=== PATIENT | female | born 1985 | race African-American/Black ===

== ENCOUNTER → 2016-06-19 | Outpatient (CLI) | payer OTHER ==
[2016-05-26 18:18] VITALS: BP 108/70
[~2016-06-19] MED LIST: CYCL10TA2 PO; HYDR-971 PO; METH4TAB2 PO
--- NOTE | 2016-06-19 14:56 | CARD ---
APPROVED REPORT EXAM: Two-dimensional and M-mode echocardiogram with Doppler and color Doppler. Other Information Quality : Average Rhythm : NSR INDICATION Cardiomegaly 2D DIMENSIONS RVDd3.5 (2.9-3.5cm)Left Atrium(2D)3.1 (1.6-4.0cm) IVSd0.9 (0.7-1.1cm)Aortic Root(2D)2.7 (2.0-3.7cm) LVDd4.8 (3.9-5.9cm)LVOT Diameter2.0 (1.8-2.4cm) PWd0.9 (0.7-1.1cm)LVDs2.8 (2.5-4.0cm) FS (%) 31.5 %SV78.9 ml LVEF(%)62.3 (>50%) Aortic Valve AoV Peak Lan.117.9cm/sAoV VTI23.2cm AO Peak GR.5.6mmHgLVOT Peak Lan.104.5cm/s LVOT VTI 20.47cmAO Mean GR.3mmHg FLORINA (VMAX)2.99qp9WTS (VTI)2.79cm2 Mitral Valve MV E Guuladud42.3cm/sMV DECEL FLVX717xo MV A Gczusjtc43.8cm/sMV E Mean Gr.1mmHg MV TWE27emV/A Ratio1.6 MV A Mhiowhli003vrRIX (PHT)3.94cm2 TDI E/Lateral E'6.3E/Medial E'6.9 Pulmonary Valve PV Peak Laroqesb11.1cm/sPV Peak Grad.3mmHg RVOT VTI16.8cm Tricuspid Valve TR P. Xrbawfgo881mw/sRAP LULXVEHI1auKp TR Peak Gr.82ggOuQJJC70bmEm Pulmonary Vein S1 Pnlqhbmb09.0cm/sD2 Dwkanxlq87.8cm/s LEFT VENTRICLE The left ventricle is normal size. There is normal left ventricular wall thickness. Left ventricle sy stolic function is normal. The Ejection Fraction is 60-65%. There is normal LV segmental wall motion. The left ventricular diastolic function and filling is normal for age. RIGHT VENTRICLE The right ventricle is normal size. There is normal right ventricular wall thickness. The right ventr icular systolic function is normal. ATRIA The left atrium size is normal. The right atrium size is normal. The interatrial septum is intact wit h no evidence for an atrial septal defect or patent foramen ovale as noted on 2-D or Doppler imaging. AORTIC VALVE The aortic valve is normal in structure and function. The aortic valve is trileaflet. Doppler and Col or Flow revealed no significant aortic regurgitation. There is no significant aortic valvular stenosi s. MITRAL VALVE The mitral valve leaflets are thickened. There is no mitral valve stenosis. Doppler and Color Flow re vealed trace mitral regurgitation. TRICUSPID VALVE The tricuspid valve is normal in structure and function. Doppler and Color Flow revealed trace to mil d tricuspid regurgitation. The PA pressure was estimated at 31 mmHg. There is no tricuspid valve sten osis. PULMONIC VALVE The pulmonary valve is normal in structure and function. Doppler and Color Flow revealed trace pulmon ic valvular regurgitation. There is no pulmonic valvular stenosis. GREAT VESSELS The aortic root is normal in size. Normal pulmonary venous flow (Doppler). The IVC is normal in size and collapses >50% with inspiration. PERICARDIAL EFFUSION There is no evidence of significant pericardial effusion. Critical Notification Critical Value: No <Conclusion> The left ventricle is normal size. Left ventricle systolic function is normal. The Ejection Fraction is 60-65%. There is normal LV segmental wall motion. No pulmonary HTN or significant valvular disease.
== END | disposition home or self-care (01) ==
LOC: ECHO 12:59
PROVIDERS: ATTEND Physician Assistant Medical
DX: I51.7 Cardiomegaly (principal); I34.0 Nonrheumatic mitral (valve) insufficiency
CPT/HCPCS: 93306